=== PATIENT | female | born 1945 ===

== ENCOUNTER 2017-07-29 05:35 | Inpatient (IN) | payer OTHER ==
[2017-07-31] MEDS ORDERED: PROTONIX40 MG PO (12:19)
[2017-08-01] MEDS ORDERED: LOPRESSOR25 MG PO (09:18)
[2017-08-01] MEDS ORDERED: LISINOPRIL20 MG PO (09:19)
[2017-08-01] MEDS ORDERED: ZOCOR40 MG PO (09:20)
[2017-08-01] MEDS ORDERED: ISOSORBIDE MONO30 MG PO (09:20)
[2017-08-01] MEDS ORDERED: SYNTHROID50 MCG PO (09:20)
[2017-08-01] MEDS ORDERED: GLIMEPIRIDE1 MG PO (09:21)
== END 2017-07-31 13:31 | disposition home or self-care (01) | DRG 627 ==
LOC: CIR.AMB 05:35 → O/R 15:16 → OB/GYN 15:16 → CIR.AMB 16:23 → OB/GYN 07-31 13:31
PROVIDERS: Surgery
PROC: 3E0F7GC Introduction of Other Therapeutic Substance into Respiratory Tract, Via Natural or Artificial Opening (ICD-10-PCS; 2017-07-29)
PROC: 0GTN0ZZ Resection of Right Inferior Parathyroid Gland, Open Approach (ICD-10-PCS; principal; 2017-07-29 09:00)
PROC: 0CJS8ZZ Inspection of Larynx, Via Natural or Artificial Opening Endoscopic (ICD-10-PCS; 2017-07-30)
PROC: 4A033R1 Measurement of Arterial Saturation, Peripheral, Percutaneous Approach (ICD-10-PCS; 2017-07-30)
DX: E21.0 Primary hyperparathyroidism (principal); R13.19 Other dysphagia; J38.01 Paralysis of vocal cords and larynx, unilateral; R06.02 Shortness of breath

== ENCOUNTER 2017-08-01 08:48 | Inpatient (IN) | payer OTHER ==
[~2017-08-01] VITALS: Ht 154.9 cm; Wt 78.5 kg
[~2017-08-01 08:48] MED LIST: PROTONIX40 MG PO
[2017-08-01] MEDS ORDERED: LOPRESSOR25 MG PO (09:18)
[2017-08-01] MEDS ORDERED: LISINOPRIL20 MG PO (09:19)
[2017-08-01] MEDS ORDERED: ISOSORBIDE MONO30 MG PO (09:20)
[2017-08-01] MEDS ORDERED: SYNTHROID50 MCG PO (09:20)
[2017-08-01] MEDS ORDERED: ZOCOR40 MG PO (09:20)
[2017-08-01] MEDS ORDERED: GLIMEPIRIDE1 MG PO (09:21)
[2017-08-07] MEDS ORDERED: FUROSEMIDE20 MG PO (07:52)
[2017-08-07] MEDS ORDERED: LOSARTAN POTASS50 MG PO (07:52)
[2017-08-07] MEDS ORDERED: TOPROL XL25 M1 PO (07:52)
[2017-08-07] MEDS ORDERED: ISORDIL10 MG PO (07:52)
[2017-08-07] MEDS ORDERED: GLIMEPIRIDE1 MG PO (07:52)
== END 2017-08-07 12:03 | disposition home health service (06) | DRG 280 ==
LOC: ER 08:48 → ICU 10:12 → ICU-2 10:12 → ICU 08-02 21:48 → MEDJ 08-05 11:56 → MEDI 08-05 11:56 → MEDJ 08-07 12:03
PROC: 4A033R1 Measurement of Arterial Saturation, Peripheral, Percutaneous Approach (ICD-10-PCS; principal; 2017-08-01)
PROC: 3E0F7GC Introduction of Other Therapeutic Substance into Respiratory Tract, Via Natural or Artificial Opening (ICD-10-PCS; 2017-08-01)
PROC: B246ZZZ Ultrasonography of Right and Left Heart (ICD-10-PCS; 2017-08-01)
PROC: 5A09557 Assistance with Respiratory Ventilation, Greater than 96 Consecutive Hours, Continuous Positive Airway Pressure (ICD-10-PCS; 2017-08-01)
PROC: 4A12X4Z Monitoring of Cardiac Electrical Activity, External Approach (ICD-10-PCS; 2017-08-05)
DX: I21.4 Non-ST elevation (NSTEMI) myocardial infarction (principal); J96.01 Acute respiratory failure with hypoxia; I50.33 Acute on chronic diastolic (congestive) heart failure; N17.8 Other acute kidney failure; N39.0 Urinary tract infection, site not specified; I11.0 Hypertensive heart disease with heart failure; E21.0 Primary hyperparathyroidism; E03.8 Other specified hypothyroidism; E11.65 Type 2 diabetes mellitus with hyperglycemia; I34.0 Nonrheumatic mitral (valve) insufficiency; B95.1 Streptococcus, group B, as the cause of diseases classified elsewhere; J38.02 Paralysis of vocal cords and larynx, bilateral